=== PATIENT | male | born 1970 | race Caucasian/White ===

== ENCOUNTER 2017-02-03 18:29 | Emergency (ER) | payer OTHER ==
--- NOTE | 2017-02-03 19:22 | RAD ---
RIGHT SHOULDER THREE VIEWS: 02/03/17 HISTORY: Shoulder pain. There is some minimal arthritic changes of the glenohumeral joint space. There is a fairly prominent subacromial spur present. IMPRESSION: Arthritic changes of the shoulder with a prominent subacromial spur. POS: [facility]
[2017-02-03] MEDS ORDERED: Diazepam 5 MG TAB ONE (21:39)
[2017-02-03] MEDS ORDERED: Naproxen 500 MG TAB ONE (21:39)
[2017-02-03] MEDS ORDERED: HYDROcodone/Acetaminophen 10/325 mg Tablet ONE (21:39)
== END 2017-02-03 22:06 | disposition home or self-care (01) ==
LOC: MADERS 18:29
DX: M25.511 Pain in right shoulder (principal); E66.9 Obesity, unspecified; F17.210 Nicotine dependence, cigarettes, uncomplicated; F17.220 Nicotine dependence, chewing tobacco, uncomplicated; E80.4 Gilbert syndrome

== ENCOUNTER 2019-05-07 16:52 | Emergency (ER) | payer OTHER, SELFPAY ==
[2019-05-07] MEDS ORDERED: Sodium Chloride 0.9% 1,000 ML ONE (18:01)
[2019-05-07] MEDS ORDERED: Adacel (T-DAP) 0.5 ML SYRINGE ONE (18:01)
[2019-05-07] MEDS ORDERED: HYDROcodone/Acetaminophen 5/325 mg Tablet ONE (18:07)
[2019-05-07] MEDS ORDERED: diphenhydrAMINE 50 MG/ML VIAL ONE (18:07)
[2019-05-07 18:21] LABS: #Basophils 0.1 thou/uL (0.0-0.2); #Eosinphils 0.5 thou/uL (0.0-0.7); #Lymphocytes 1.8 thou/uL (1.20-3.40); #Monocytes 0.4 thou/uL (0.11-0.59); #Neutrophils 3.7 thou/uL (1.40-6.50); %Basophils 1.1 % (0.0-1.0); %Eosinophils 7.3 % (0.0-10.0); %Lymphocytes 28.1 % (21.0-51.0); %Monocytes 6.2 % (0.0-10.0); %Neutrophils 57.4 % (42.0-75.0); Mean Corpuscular Hemoglobin 31.6 pg (27.0-31.0); Mean Corpuscular Volume 92.9 fL (78.0-98.0); Mean Platelet Volume 6.5 fL (7.4-10.4); Platelet Count 210 thou/uL (130-400); RBC Distribution Width 11.1 % (11.5-14.5); Red Blood Cell (RBC) Count 4.42 mill/uL (4.70-6.10); White Blood Cell (WBC) Count 6.4 thou/uL (4.8-10.8)
[2019-05-07 18:28] LABS: INR-International Normal Ratio 0.9; PTT 30.3 SEC (22.9-36.1); Prothrombin Time 12.5 SEC (12.0-14.7)
[2019-05-07 18:39] LABS: ALT (SGPT) 31 U/L (8-55); AST (SGOT) 27 U/L (5-34); Alkaline Phosphatase 110 U/L (40-110); Anion Gap 14 mmol/L (10-20); BUN (Urea Nitrogen) 14 mg/dL (8.9-20.6); Bilirubin, Total 1.5 mg/dL (0.2-1.2); CK (CPK) 76 U/L (30-200); CRP (Inflammatory) Less than 0.50 mg/dL (= or < 0.5); Calc. Creatinine Clearance 0 mL/min (70-130); Calcium 8.9 mg/dL (7.8-10.44); Carbon Dioxide 23 mmol/L (22-29); Chloride 106 mmol/L (98-107); Estimated GFR-MDRD Greater than 90; Globulin 2.5 g/dL (2.4-3.5); Glucose 94 mg/dL (70-105); Potassium 3.9 mmol/L (3.5-5.1); Protein, Total 6.5 g/dL (6.0-8.3); Sodium 139 mmol/L (136-145)
[2019-05-07] MEDS ORDERED: Morphine 4 MG/ML VIAL ONE (19:23)
[2019-05-07] MEDS ORDERED: Ondansetron PF 4 MG/2 ML Vial ONE (19:23)
[2019-05-07] MEDS ORDERED: Cephalexin 500 MG CAP ONE (21:52)
[2019-05-07] MEDS ORDERED: HYDROcodone/Acetaminophen 10/325 mg Tablet ONE (21:52)
[2019-05-07 22:51] LABS: Bilirubin Negative (Negative); Blood, Urine Negative (Negative); Clarity Clear (Clear); Glucose, Urine (Dipstick) Negative (Negative); Leukocyte Negative (Negative); Nitrite Negative (Negative); Protein, Urine (Dipstick) Negative (Neg-Trace)
[2019-05-07 22:54] LABS: PTT 32.8 SEC (22.9-36.1); Prothrombin Time 13.3 SEC (12.0-14.7)
== END 2019-05-07 23:40 | disposition home or self-care (01) ==
LOC: MADERS 16:52
DX: S61.253A Open bite of left middle finger without damage to nail, initial encounter (principal); E66.9 Obesity, unspecified; F17.220 Nicotine dependence, chewing tobacco, uncomplicated; W64.XXXA Exposure to other animate mechanical forces, initial encounter
CPT/HCPCS: 36415; 80053; 81003; 82550; 85025; 85384; 85610; 85730; 86140; 90715; 96361; 96374; 96375; J1200; J2270; J2405; J7050